=== PATIENT | female | born 1960 ===

== ENCOUNTER 2017-07-25 13:52 | Emergency (ER) | payer OTHER ==
[2017-07-25 14:06] VITALS: BP 157/61; PULSE 62; RESP 18; TEMP 97.9; O2SAT 98
--- NOTE | 2017-07-25 14:28 | ED PDOC ---
Arrival/HPI - General Chief Complaint: Flu-like Symptoms Time Seen by Provider: 07/25/17 13:57 Historian: Patient - History of Present Illness Narrative History of Present Illness (Text): 07/25/17 14:03 A 57 year old female, whose past medical history includes , presents to the emergency department complaining of generalized myalgias, subjective fever, and chills. Patient denies any cough, chest pain, shortness of breath, or any other complaints at this time. PMD: Dr. Dre Forman Past Medical History - Provider Review Nursing Documentation Reviewed: Yes - Infectious Disease Hx of Infectious Diseases: None - Psychiatric Hx Substance Use: No Family/Social History - Physician Review Nursing Documentation Reviewed: Yes Family/Social History: No Known Family HX Smoking Status: Never Smoked Hx Alcohol Use: No Hx Substance Use: No Allergies/Home Meds Allergies/Adverse Reactions: Allergies No Known Allergies Allergy (Verified 07/25/17 14:06) Home Medications: Home Meds Medication Instructions Recorded Confirmed No Known Home Med 07/25/17 07/25/17 Review of Systems - Physician Review All systems were reviewed & negative as marked: Yes - Review of Systems Constitutional: Fevers (subjective) Respiratory: absent: SOB, Cough, Wheezing Cardiovascular: absent: Chest Pain Gastrointestinal: absent: Abdominal Pain, Constipation, Diarrhea, Nausea, Vomiting Genitourinary Female: absent: Dysuria, Frequency, Hematuria, Urine Output Changes, Vaginal Bleeding, Vaginal Discharge Musculoskeletal: Myalgias Neurological: absent: Headache, Dizziness Physical Exam Vital Signs Reviewed: Yes Vital Signs Temp Pulse Resp BP Pulse Ox 07/25/17 13:59 97.9 F 62 18 157/61 H 98 07/25/17 13:53 97.8 F 62 18 157/61 H 98 Temperature: Afebrile Blood Pressure: Hypertensive Pulse: Regular Respiratory Rate: Normal Appearance: Positive for: Well-Appearing Pain Distress: None Mental Status: Positive for: Alert and Oriented X 3 - Systems Exam Head: Present: Atraumatic, Normocephalic Pupils: Present: PERRL Extroacular Muscles: Present: EOMI Conjunctiva: Present: Normal Mouth: Present: Moist Mucous Membranes Nose (Internal): Present: Rhinorrhea Neck: Present: Normal Range of Motion Respiratory/Chest: Present: Clear to Auscultation, Good Air Exchange. No: Respiratory Distress, Accessory Muscle Use Cardiovascular: Present: Regular Rate and Rhythm, Normal S1, S2. No: Murmurs Abdomen: Present: Normal Bowel Sounds. No: Tenderness, Distention, Peritoneal Signs Back: Present: Normal Inspection Upper Extremity: Present: Normal Inspection. No: Cyanosis, Edema Lower Extremity: Present: Normal Inspection. No: Edema Neurological: Present: GCS=15, CN II-XII Intact, Speech Normal Skin: Present: Warm, Dry, Normal Color. No: Rashes Psychiatric: Present: Alert, Oriented x 3, Normal Insight, Normal Concentration Medical Decision Making ED Course and Treatment: 07/25/17 14:08 Impression: 57 year old female with generalized myalgias, subjective fever, and chills. Physical exam shows rhinorrhea, no other acute findings on physical examination. Plan: -- Serology Influenza A B stat -- Motrin -- Reassess and disposition Progress Notes: 07/25/17 14:58 Flu negative but symptoms are consistent with viral illness. - Lab Interpretations Lab Results: Lab Results 07/25/17 14:25: Influenza Typ A,B (EIA) Negative for flu a/b I have reviewed the lab results: Yes - Medication Orders Current Medication Orders: Discontinued Medications Ibuprofen (Motrin Tab) 400 mg PO STAT STA Stop: 07/25/17 14:09 Last Admin: 07/25/17 14:24 Dose: 400 mg MAR Pain/Vitals Document 07/25/17 14:24 RACIEL (Rec: 07/25/17 14:24 [id number]) Pain Reassessment Is This A Pain ReAssessment? Yes - Scribe Statement The provider has reviewed the documentation as recorded by the Margy Cash Provider Scribe Attestation: All medical record entries made by the Scribe were at my direction and personally dictated by me. I have reviewed the chart and agree that the record accurately reflects my personal performance of the history, physical exam, medical decision making, and the department course for this patient. I have also personally directed, reviewed, and agree with the discharge instructions and disposition. Disposition/Present on Arrival - Present on Arrival Any Indicators Present on Arrival: No History of DVT/PE: No History of Uncontrolled Diabetes: No Urinary Catheter: No History of Decub. Ulcer: No History Surgical Site Infection Following: None - Disposition Have Diagnosis and Disposition been Completed?: Yes Diagnosis: Viral illness Disposition: HOME/ ROUTINE Disposition Time: 14:59 Patient Plan: Discharge Patient Problems: Current Active Problems Problem Status Onset Viral illness Acute Condition: GOOD Discharge Instructions (ExitCare): Viral Syndrome (ED) Additional Instructions: Follow-up with PMD within 2 days. Rest, copious fluids. Return to ED if condition worsens. Motrin for fever. Referrals: Dre Forman [Primary Care Provider] - Follow up with primary Forms: [facility] ([place]ian), WORK NOTE
== END 2017-07-25 15:06 | disposition home or self-care (01) ==
LOC: ED 13:52
DX: B34.9 Viral infection, unspecified (principal)

== ENCOUNTER 2018-03-20 08:55 | Emergency (ER) | payer OTHER ==
[2018-03-20 09:07] VITALS: BMI 32.5
[2018-03-20 09:12] VITALS: TEMP 98
--- NOTE | 2018-03-20 09:30 | ED PDOC ---
Arrival/HPI - General Historian: Patient - History of Present Illness Time/Duration: 1 week Symptom Onset: Sudden Symptom Course: Worsening Quality: Stabbing Severity Level: 8 Activities at Onset: Light <Imani Best - Last Filed: 03/20/18 12:01> <Martínez De La O - Last Filed: 03/20/18 13:10> - General Chief Complaint: Back Pain Time Seen by Provider: 03/20/18 09:00 - History of Present Illness Narrative History of Present Illness (Text): 03/20/18 09:33 57 year old female with PMH of HTN who presents to the ED c/o 8/10 lower back pain x 1 week. Pt states last Saturday she was bending over to tie her shoe when she experienced sudden onset of stabbing, bilateral lumbar back pain without radiation. The pain has since worsened and is preventing her from sleeping. Pain is worse with movement and pt is having difficulty ambulating secondary to pain. Pt has experienced back pain before but says this is different. Last Xray of lumbar spine in December was normal. No history of osteoporosis or IV drug use. Denies fever, chills, urinary symptoms, saddle ansethesia, bowel or bladder incontinence, abdominal pain, N/V, diarrhea, weakness, paresthesias or numbness in lower extremities. (Imani Best) Past Medical History - Provider Review Nursing Documentation Reviewed: Yes - Infectious Disease Hx of Infectious Diseases: None - Reproductive Menopause: Yes - Cardiac Hx Cardiac Disorders: Yes Hx Hypertension: Yes - Pulmonary Hx Respiratory Disorders: No - Psychiatric Hx Substance Use: No - Anesthesia Hx Anesthesia: No <Imani Best - Last Filed: 03/20/18 12:01> Family/Social History - Physician Review Nursing Documentation Reviewed: Yes Family/Social History: No Known Family HX Smoking Status: Never Smoked Hx Alcohol Use: No Hx Substance Use: No <Imani Best - Last Filed: 03/20/18 12:01> Allergies/Home Meds <Imani Best - Last Filed: 03/20/18 12:01> <Martínez De La O - Last Filed: 03/20/18 13:10> Allergies/Adverse Reactions: Allergies No Known Allergies Allergy (Verified 07/25/17 14:06) Review of Systems - Physician Review All systems were reviewed & negative as marked: Yes - Review of Systems Constitutional: Normal. absent: Weight Change, Fevers, Night Sweats Respiratory: Normal Cardiovascular: Normal Gastrointestinal: Normal. absent: Abdominal Pain, Stool Changes, Diarrhea, Nausea, Vomiting, Hematochezia Genitourinary Female: absent: Dysuria, Frequency, Hematuria, Vaginal Bleeding Musculoskeletal: Back Pain, Myalgias. absent: Neck Pain, Joint Swelling Skin: Normal. absent: Rash, Skin Lesions, Abscess, Cellulitis Neurological: Gait Changes (Difficulty ambulating secondary to pain). absent: Dizziness, Focal Weakness <Imani Best - Last Filed: 03/20/18 12:01> Physical Exam Vital Signs Reviewed: Yes Temperature: Afebrile Blood Pressure: Hypertensive (Known history of HTN, followed by PMD.) Pulse: Regular Respiratory Rate: Normal Appearance: Positive for: Well-Appearing, Non-Toxic, Uncomfortable Pain Distress: Moderate Mental Status: Positive for: Alert and Oriented X 3 - Systems Exam Neck: Present: Normal Range of Motion. No: MIDLINE TENDERNESS, Paraspinal Tenderness Respiratory/Chest: Present: Clear to Auscultation, Good Air Exchange. No: Respiratory Distress, Accessory Muscle Use Cardiovascular: Present: Regular Rate and Rhythm, Normal S1, S2, Peripheal Pulses Present. No: Murmurs Abdomen: Present: Normal Bowel Sounds. No: Tenderness, Distention, Peritoneal Signs Back: Present: Normal Inspection, Paraspinal Tenderness (Bilateral lumbar paraspinal tenderness). No: Midline Tenderness, Pain with Leg Raise Upper Extremity: Present: NORMAL PULSES, Capillary Refill < 2s Lower Extremity: Present: Normal Inspection, NORMAL PULSES, Normal ROM, Capillary Refill < 2 s. No: Edema, CALF TENDERNESS, Tenderness, Swelling, Erythema Neurological: Present: Motor Func Grossly Intact (Strength 5/5 in both lower extremities), Normal Sensory Function, Norm Deep Tendon Reflexes. No: Gait Normal (Difficulty ambulating secondary to pain) Skin: Present: Warm, Dry, Normal Color. No: Rashes Psychiatric: Present: Alert, Oriented x 3, Normal Insight, Normal Concentration <Imani Best - Last Filed: 03/20/18 12:01> Vital Signs Temp Pulse Resp BP Pulse Ox 03/20/18 12:27 54 L 18 159/55 H 98 03/20/18 11:02 53 L 18 156/78 H 99 03/20/18 09:07 98 F 76 16 161/84 H 100 Medical Decision Making Re-evaluation Time: 11:30 Reassessment Condition: Improved <Imani Best - Last Filed: 03/20/18 12:01> <Martínez De La O - Last Filed: 03/20/18 13:10> ED Course and Treatment: 03/20/18 57 y/o female with PMH of HTN presents to the Ed c/o 8/10 low back pain x 1 week that began after reaching down to tie her shoes. PT has never had back pain like this before. No IVDA, recent steroid use, history of malignancy. Denies fever, chills, incontinence, saddle anesthesia, extremity weakness or paresthesia. Paraspinal tenderness and lack of midline tenderness or extremity weakness on physical exam consistent with muscle spasm. Will give 10mg Flexeril PO Will give 30mg Toradol IM Pt continues to complain of pain 1 hour after receiving above medication. NKDA Will give 4mg Morphine Will give 4mg Zofran for narcotic-induced nausea 03/20/18 12:00 Pt reevaluated. Pain score now 2/10. No new complaints. Will discharge with prescriptions for Flexeril and Percocet for back pain. 03/20/18 12:31 Impression: Low back pain due to muscle spasm Pt educated on low back pain and correct use of prescribed medications Work note given, 2 days Pt told to avoid heavy lifting and strenuous activity Pt told to return for fevers, chills, saddle anesthesia, incontinence, worsening pain. (Imani Best) - Medication Orders Current Medication Orders: Discontinued Medications Cyclobenzaprine HCl (Flexeril) 10 mg PO STAT STA Stop: 03/20/18 09:33 Last Admin: 03/20/18 09:55 Dose: 10 mg Ketorolac Tromethamine (Toradol) 30 mg IM STAT STA Stop: 03/20/18 09:30 Last Admin: 03/20/18 09:55 Dose: 30 mg MAR Pain Assessment Document 03/20/18 09:55 EQ (Rec: 03/20/18 09:55 EQ [id number]) Pain Reassessment Is this a pain reassessment? No Sleep Is patient sleeping during reassessment? No Presence of Pain Presence of Pain Yes IM Administration Charges Document 03/20/18 09:55 EQ (Rec: 03/20/18 09:55 EQ [id number]) Charges for Administration # of IM Administrations 1 Morphine Sulfate (Morphine) 4 mg IM STAT STA Stop: 03/20/18 10:44 Last Admin: 03/20/18 10:54 Dose: 4 mg MAR Pain Assessment Document 03/20/18 10:54 EQ (Rec: 03/20/18 10:55 EQ [id number]) Pain Reassessment Is this a pain reassessment? Yes Sleep Is patient sleeping during reassessment? No Presence of Pain Presence of Pain Yes Pain Scale Used Pain Scale Used Numeric Location Left, Right or Bilateral Left Upper or Lower Lower Pain Location Body Site Back Description Description Constant Intensity of Pain at present 7 Acceptable Level of Pain 0 IM Administration Charges Document 03/20/18 10:54 EQ (Rec: 03/20/18 10:55 EQ [id number]) Injection Site MAR Injection Site Right Arm Charges for Administration # of IM Administrations 1 Ondansetron HCl (Zofran Odt) 4 mg PO STAT STA Stop: 03/20/18 10:45 Last Admin: 03/20/18 10:56 Dose: 4 mg - PA / REGIONAL GUIDE / Resident Statement /DO has examined the patient and agrees with the treatment plan. <Martínez De La O - Last Filed: 03/20/18 13:10> Disposition/Present on Arrival - Present on Arrival Any Indicators Present on Arrival: No History of DVT/PE: No History of Uncontrolled Diabetes: No Urinary Catheter: No History of Decub. Ulcer: No History Surgical Site Infection Following: None - Disposition Have Diagnosis and Disposition been Completed?: Yes Disposition Time: 11:30 Patient Plan: Discharge <Imani Best - Last Filed: 03/20/18 12:01> <Martínez De La O - Last Filed: 03/20/18 13:10> - Disposition Diagnosis: Muscle spasm, Lower back pain Disposition: HOME/ ROUTINE Condition: IMPROVED Discharge Instructions (ExitCare): Low Back Pain in Adults Additional Instructions: Take 1 tab Flexeril every 8 hours for 5 days Take 1 tab Percocet every 6 hours as needed for pain Followup with primary doctor as needed. Return if you develop fever, difficulty breathing, bowel/bladder incontinence, or if pain worsens Prescriptions: Cyclobenzaprine [Flexeril] 5 mg PO TID 5 Days #15 tab oxyCODONE/Acetaminophen [Percocet 5/325 mg Tab] 1 ea PO Q6H PRN #5 tab PRN Reason: Pain, Severe (8-10) Referrals: Dre Forman [Primary Care Provider] - Follow up with primary Forms: [facility] ([place]), WORK NOTE
[2018-03-20] MEDS ORDERED: Morphine 4 mg/ml ISec IM STA (10:43)
[2018-03-20 11:03] VITALS: RESP 18
[2018-03-20 12:27] VITALS: BP 159/55; PULSE 54; O2SAT 98
== END 2018-03-20 12:29 | disposition home or self-care (01) ==
LOC: ED 08:55
DX: M54.5 Low back pain (principal); M62.838 Other muscle spasm
CPT/HCPCS: 96372; 99283; J1885; J2270

== ENCOUNTER 2018-07-24 07:58 | Outpatient (CLI) | payer OTHER | END 2018-07-24 07:59 | disposition home or self-care (01) | LOC: RAD 07:58 ==